=== PATIENT | female | born 1990 | race Caucasian/White ===

== ENCOUNTER 2019-09-13 18:07 | Inpatient (IN) ==
[2019-09-13] MEDS ORDERED: OXYTOCIN 30 UNITS/500 ML BAG IV PRN ×2 (18:15→22:09)
[2019-09-13 18:44] LABS: Hemoglobin 12.8 g/dL (12.0-16.0); Mean Corpuscular Hemoglobin 31.2 pg (25-34); Mean Corpuscular Volume 90.2 fL (80-100); Mean Platelet Volume 10.1 fL (7.4-10.4); Platelet Count 156 K/uL (130-400); RDW Coefficient of Variation 13.4 % (11.5-14.5); RDW Standard Deviation 43.7 fL (36.4-46.3); White Blood Count 8.75 K/uL (4.8-10.8)
[2019-09-13 18:46] LABS: Mean Corpuscular Hgb Conc 34.6 g/dL (32-36)
[2019-09-13] MEDS: LACTATED RINGER'S 1,000 ML IV PRN ×2 (18:47→19:41)
[2019-09-13] MEDS ORDERED: fentaNYL citrate 100 MCG/2 ML VIAL ONE (18:58)
[2019-09-13] MEDS ORDERED: BUPIVACAINE 0.25% 30 ML VIAL ONE (18:58)
[2019-09-13] MEDS ORDERED: fentaNYL 2MCG/ML ROPIV 1.25MG/ML 100 ML BAG EPI ONE (18:58)
[2019-09-13] MEDS ORDERED: ePHEDrine sulfate 50 MG/ML AMP ONE (18:58)
[2019-09-13] MEDS ORDERED: DiphenhydrAMINE HCL 50 MG/ML VIAL IV PRN (19:37)
[2019-09-13] MEDS ORDERED: NALOXONE HCL 1 MG in SODIUM CHLORIDE 0.9% 1000ML 1,000 ML IV PRN (19:37)
[2019-09-13] MEDS ORDERED: NALBUPHINE HCL INJ 10 MG/ML AMP IV PRN (19:37)
[2019-09-13] MEDS ORDERED: NALOXONE HCL 0.4 MG/1 ML VIAL/CARP IV PRN (19:37)
[2019-09-13] MEDS ORDERED: ePHEDrine sulfate 50 MG/ML AMP IV PRN (19:37)
[2019-09-13] MEDS ORDERED: fentaNYL 2MCG/ML ROPIV 1.25MG/ML 100 ML BAG EPI PRN (19:37)
[2019-09-13] MEDS ORDERED: ONDANSETRON INJ 2 MG/ML 2 ML VIAL IV PRN (19:37)
--- NOTE | 2019-09-13 19:37 | Anesthesiology Consultation ---
Date of Service September 13, 2019 Assessment & Plan (1) Encounter for pre-operative examination: Chart Review Chart Review: Acceptable Risk for Labor Epidural Consults Requested none ASA ASA2 Proposed Anesthesia Anesthesia Type: Labor Epidural Risk / Benefits Reviewed With: PT / POA / Parent / Guardian, Accepts Plan and Informed Consent Obtained History Height/Weight Height: 5 ft Weight: 61.235 kg Allergies Allergy/AdvReac Type Severity Reaction Status Date / Time No Known Drug Allergies Allergy Verified 09/07/19 16:21 Medications Home Medications Medication Instructions Recorded Confirmed Last Taken PNV cmb#95-ferrous fumarate-FA 1 tab PO DAILY 03/12/19 09/13/19 Unknown [] Active Medications Generic Name Dose Route Start Last Admin Trade Name Freq PRN Reason Stop Dose Admin Lactated Ringer's 1,000 mls @ 125 mls/hr 09/13/19 18:15 09/13/19 18:47 Lr IV 09/15/19 18:14 999 mls/hr .Q8H PRN Administration L&D Protocol Protocol Past Medical History Medical History History of asthma History of breast lump History of dyspareunia History of dysuria History of multiple miscarriages History of varicella vaccination Exercise / Class Metabolic Activity II 4-5 Yardwork/Stairs/Walk up hill Past Family History Family History Grandmother (Maternal) Diabetes Mother Hypertension Father Hypertension Other No significant family history Past Surgical History Surgical History S/P knee surgery S/P wisdom tooth extraction Past Anesthesia History No Hx of Anesthesia Complications and No Family Hx of Anesthesia Complications History of PONV No Hx of PONV and No Hx of Motion Sickness Social History Smoking Status: Never smoker Hx Alcohol Use: No Hx Substance Use: No substance use type: does not use Physical Exam Vital Signs Last Vital Signs Temp 98.4 F 09/13/19 18:22 Pulse 79 09/13/19 19:32 Resp 22 09/13/19 18:59 BP 129/78 09/13/19 18:15 Pulse Ox 100 09/13/19 19:32 ENMT Mouth: no dentition abnormality Thyromental Distance: > or= 3.5 Finger Breadths Mallampati Class: II Neck normal visual inspection Respiratory normal respiratory effort Auscultation: lungs clear to auscultation bilaterally Cardiovascular Rate/Rhythm: regular rate and regular rhythm Testing Laboratory Results 09/13/19 18:37
--- NOTE | 2019-09-13 22:06 | Delivery Summary ---
Vaginal Delivery Summary Date of Service September 13, 2019 Patient arrived in labor and delivery at 4 cm requested epidural at that time t hen she spontaneously ruptured membranes for clear fluid she progressed rapidly to full dilatation and delivered over an intact perineum in occiput anterior position mouth and then nares were suctioned no nuchal cord gentle traction no excessive force for the delivery of the baby live vigorous infant cord clamped and cut cord gases obtained cord blood obtained placenta removed with traction IV Pitocin started no tearing noted estimated blood loss 250 mL sponge and instrument counts correct
[2019-09-13] MEDS ORDERED: BENZOCAINE 20% AER SPR 82.5 GM CAN EXT PRN (22:09)
[2019-09-13] MEDS ORDERED: bisacodyL 10 MG SUPP PR PRN (22:09)
[2019-09-13] MEDS ORDERED: HYDROCORTISONE ACETATE 25 MG SUPP PR PRN (22:09)
[2019-09-13] MEDS ORDERED: OXYCODONE/ACETAMINOPHEN 5mg/325mg TAB PO PRN (22:09)
[2019-09-13] MEDS ORDERED: SUPERCREAM 0.870% 15 GM JAR EXT PRN (22:09)
[2019-09-13] MEDS ORDERED: DIPHTHERIA/TETANUS/PERTUSSIS 0.5 ML SYR/VIAL IM ONE (22:09)
[2019-09-13 22:34] LABS: Base Excess Cord Venous Blood -0.1 mEq/L (-7.7-1.9); Cord Venous Blood HCO3 26 mmol/L (18.4-26.8); Cord Venous Blood PCO2 45 mmHg (30.4-57.2); Cord Venous Blood PO2 30 mmHg (14.1-43.3); Cord Venous Blood pH 7.37 (7.20-7.44)
[2019-09-13 22:38] LABS: Base Excess Cord Arterial Bld -0.5 mEq/L (-9-1.8); CO2 Cord Arterial Blood 60 mmHg (39.1-73.5); HCO3 Cord Arterial Blood 28 mmol/L (19.7-28.5); pH Cord Arterial Blood 7.29 (7.1-7.38)
[2019-09-13 22:42] LABS: Oxygen Sat Cord Arterial Blood < 60.0 % (<60)
[2019-09-14] MEDS: IBUPROFEN 600 MG TAB PO PRN ×4 (04:27→15:41)
--- NOTE | 2019-09-14 06:05 | Anesthesia Procedure Note ---
Date of Service September 14, 2019 Anesthesia Post Epidural Note Vital Signs Vital Signs: Temp Pulse Resp BP Pulse Ox 98.6 F 69 18 102/65 98 09/14/19 04:40 09/14/19 04:40 09/14/19 04:40 09/14/19 04:40 09/14/19 04:40 Notes Mental Status: alert / awake / arousable and participated in evaluation Nausea / Vomiting: adequately controlled Pain: adequately controlled Airway Patency, RR, SpO2: stable & adequate BP & HR: stable & adequate Hydration State: stable & adequate Neuraxial Anesthesia: was administered and sensory block is resolving Anesthetic Complications: no major complications apparent and Pt Satisfied with anesthetic care Epidural: Removed without complications and With tip intact
[2019-09-14 06:41] LABS: Hematocrit (blood only) 33.7 % (37-47); Hemoglobin 11.6 g/dL (12.0-16.0); Mean Corpuscular Hemoglobin 31.3 pg (25-34); Mean Corpuscular Hgb Conc 34.4 g/dL (32-36); Mean Corpuscular Volume 90.8 fL (80-100); Platelet Count 140 K/uL (130-400); RDW Coefficient of Variation 13.5 % (11.5-14.5); RDW Standard Deviation 44.9 fL (36.4-46.3); Red Blood Count 3.71 M/uL (4.2-5.4); White Blood Count 10.31 K/uL (4.8-10.8)
--- NOTE | 2019-09-14 07:21 | Obstetrical Progress Note ---
Date of Service September 14, 2019 delivered 12 hours ago. Well min bleeding, no ext pain Assessment & Plan (1) Normal delivery: Cont current care Physical Exam Uterus firm non tender. Ext neg Constitutional WD/WN, vitals as above Results & Data Vital Signs (Past 12 Hours) Vital Signs Temp Pulse Pulse Resp BP BP Pulse Ox 09/14/19 04:40 98.6 F 69 18 102/65 98 09/14/19 00:03 83 101/56 L 09/13/19 23:48 80 16 100/59 L 09/13/19 23:33 82 102/61 09/13/19 23:20 98.2 F 76 20 106/69 97 09/13/19 23:18 85 18 111/67 09/13/19 23:03 90 112/65 09/13/19 22:50 98.6 F 16 09/13/19 22:48 81 111/65 09/13/19 22:35 20 09/13/19 22:33 78 121/74 09/13/19 22:20 99.0 F 20 09/13/19 22:18 80 115/72 09/13/19 22:05 89 20 120/78 09/13/19 22:02 92 H 100 09/13/19 21:57 89 138/61 99 09/13/19 21:54 96 H 92 09/13/19 21:52 104 H 100 09/13/19 21:47 112 H 99 09/13/19 21:42 93 H 173/71 H 100 09/13/19 21:37 92 H 100 09/13/19 21:32 83 100 09/13/19 21:30 18 09/13/19 21:28 75 96/53 L 09/13/19 21:27 77 100 09/13/19 21:22 72 100 09/13/19 21:17 62 100 09/13/19 21:12 87 100/65 99 09/13/19 21:07 86 98 09/13/19 21:02 80 99 09/13/19 21:00 98.8 F 18 09/13/19 20:58 81 109/73 09/13/19 20:57 75 99 09/13/19 20:52 80 100 09/13/19 20:47 73 99 09/13/19 20:43 72 124/76 09/13/19 20:42 75 100 09/13/19 20:37 82 100 09/13/19 20:32 89 100 09/13/19 20:30 20 09/13/19 20:28 72 115/69 09/13/19 20:27 72 100 09/13/19 20:22 93 H 100 09/13/19 20:17 93 H 99 09/13/19 20:15 16 09/13/19 20:12 87 99 09/13/19 20:11 74 119/69 09/13/19 20:07 92 H 99 09/13/19 20:06 90 102/70 09/13/19 20:04 99 H 101/73 09/13/19 20:02 89 108/66 99 09/13/19 20:00 90 105/70 09/13/19 19:58 92 H 100/64 09/13/19 19:57 92 H 99 09/13/19 19:56 96 H 98/72 L 09/13/19 19:53 90 116/76 09/13/19 19:52 92 H 99 09/13/19 19:51 99 H 111/73 09/13/19 19:50 83 127/74 09/13/19 19:47 99 H 99 09/13/19 19:42 95 H 100 09/13/19 19:40 89 130/68 09/13/19 19:37 79 100 09/13/19 19:32 79 100 09/13/19 19:30 22 09/13/19 19:27 79 100 09/13/19 19:22 77 100
[2019-09-14] MEDS: DOCUSATE SODIUM 100 MG CAP PO SCH ×2 (08:15→20:48)
[2019-09-14] MEDS: PRENATAL VITAMIN 1 TAB PO SCH (08:15)
[2019-09-14] MEDS ORDERED: NON-FORMULARY MEDICATION (Pnv Cmb#95-Ferrous Fumarate-Fa [Prenatal] 1 TAB) PO SCH (09:00)
[2019-09-14] MEDS: ACETAMINOPHEN 325 MG TAB PO PRN ×2 (14:25→23:24)
[2019-09-14] MEDS ORDERED: bisacodyL 5 MG TABEC PO SCH (20:00)
[2019-09-15] MEDS: IBUPROFEN 600 MG TAB PO PRN ×3 (02:13→12:20)
[2019-09-15] MEDS: ACETAMINOPHEN 325 MG TAB PO PRN ×2 (06:01→12:21)
[2019-09-15 06:18] LABS: Hematocrit (blood only) 34.7 % (37-47); Hemoglobin 11.6 g/dL (12.0-16.0)
--- NOTE | 2019-09-15 06:55 | Obstetrical Progress Note ---
Date of Service September 15, 2019 Assessment & Plan (1) Encounter for care and examination after delivery: with Hx PCOS. Uncomplicated , PPD after on 09/13. - ambulating within room, encouraged ambulation through the halls - tolerating regular diet - lochia slowing - okay for discharge home today - continue supportive care as needed (2) Normal delivery: (3) Polycystic ovarian syndrome: Supervising Physician Co-Signing Physician Notes Resident Physician Supervision Note: I was present with Dr. Tejeda during the history and exam. I discussed the case with the resident and agree with the findings and plan as documented in the note. Any exceptions or clarifications are listed here: PPD#2 doing well. DC home today. Discussed discharge instructions. Documented By: Migdalia Blandon, DO Subjective Doing well this morning. No complaints. Review of Systems Constitutional: + fatigue; no fever and no chills Respiratory: no cough and no dyspnea Cardiovascular: no chest pain, no syncope, no edema and no calf pain Gastrointestinal: + cramping; no abdominal pain, no nausea, no vomiting, no constipation and no diarrhea/loose stools Genitourinary: no dysuria and no difficulty urinating Neurologic: no headache(s) Physical Exam Constitutional: well developed and well nourished Respiratory: normal respiratory effort; no respiratory distress, no labored breathing and no cough Auscultation: no crackles, no rales, no rhonchi and no wheezes Cardiovascular: Rate/Rhythm: regular rate and regular rhythm Heart Sounds: no gallop, no murmur and no cardiac rub Extremities: no pedal edema Gastrointestinal (Abdomen): Inspection/Auscultation: + abdomen distended and normal bowel sounds Percussion/Palpation: abdomen soft; no guarding Musculoskeletal: no tenderness to palpation of calves bilaterally Genitourinary: Uterus small and firm, palpable in midline at level of um bilicus, no tenderness to palpation. Results & Data Vital Signs (Past 12 Hours) Vital Signs Temp Pulse Resp BP Pulse Ox 09/14/19 23:50 36.6 C 57 L 18 137/83 98 09/14/19 19:45 37.0 C 62 18 109/70 09/15/19 Range/Units 05:54 Hgb 11.6 L (12.0-16.0) g/dL Hct 34.7 L (37-47) % Resident Activity Tracking Resident Involvement: Resident Care Provided Care Provided: Adult Hospital Medicine and OB Delivery
[2019-09-15] MEDS: PRENATAL VITAMIN 1 TAB PO SCH (07:57)
[2019-09-15] MEDS: DOCUSATE SODIUM 100 MG CAP PO SCH (07:57)
== END 2019-09-15 13:20 | disposition home or self-care (01) | DRG 807 ==
LOC: OPB 18:07 → 4S1 18:08 → 4S2 09-14 00:15

== ENCOUNTER 2022-12-17 05:31 | Inpatient (IN) ==
[2022-12-17] MEDS ORDERED: LIDOCAINE 1% LOCAL 20 ML VIAL INFIL PRN (06:16)
--- NOTE | 2022-12-17 06:22 | History & Physical Report ---
Date of Service December 17, 2022 Assessment & Plan (1) Supervision of normal intrauterine in multigravida: Plan: IUP in multiparous female at term in labor withSPROM epidural when requested anticipate vaginal History of Present Illness Primary Care Provider: Gene Galicia DO Patient is a 32 yo female EDC 12/18/22 who presents with SPROM clear fluid at 0500 and spontaneous onset of regular contractions. has been uncomplicated. GBS - negative Allergies Allergy/AdvReac Type Severity Reaction Status Date / Time No Known Drug Allergies Allergy Verified 12/15/22 10:23 Home Medications Medication Instructions Recorded Confirmed Type albuterol sulfate 90 mcg/actuation 2 puff inhalation Q8H PRN 02/12/21 12/17/22 Rx aerosol inhaler (Ventolin HFA) shortness of breath or wheezing #8.5 grams prenat.vits,shanda,[id number] 1 tab PO DAILY 05/07/22 12/17/22 History Patient History Medical History (Updated 12/14/22 @ 08:58 by Traci Chun MD) Encounter for care and examination after delivery Encounter for pre-operative examination History of asthma History of breast lump History of dyspareunia History of dysuria History of multiple miscarriages History of varicella vaccination Normal delivery PCB (post coital bleeding) Supervision of normal intrauterine in multigravida Vaginal delivery (09/13/19) Surgical History History of breast biopsy 2011 neg S/P knee surgery S/P wisdom tooth extraction Family History Grandmother (Maternal) Diabetes Mother Hypertension Father Hypertension Tonsil cancer Grandfather (Maternal) Myocardial infarction Denies family history of Ovarian cancer Prostate cancer Breast cancer Lung cancer Colorectal cancer Social History (Updated 05/07/22 @ 14:27 by Mary Grace Grimaldo) Smoking Status: Never smoker Second Hand Exposure: No; Hx Alcohol Use: No Hx Substance Use: No Preferred Language: German Communication Ability: Effective Visual Impairment: Limited Hearing Ability: Normal Public Welfare Worker Required: No Beliefs That Will Affect Care: None marital status: marital status details: Angelita (32) [phone] Current Living Situation: Spouse and Family Current Living Situation Comment: lives with spouse and children. no pets current occupational status: employed current occupation: senior accountant analyst How many Children do You have: 2 Other Information That Helps Us Care for You: No Feels Safe at Home: Yes Safety Concerns: Feels Safe At This Time Childhood Exposure to Second-Hand Smoke: No caffeine: Yes (drinks coffee daily ) Dental Care, Regularly: Yes Physical Activity Frequency: 5-6 Times per Week Seatbelt Use: always Sunscreen Use: Yes Assistive Devices: None Review of Systems All systems reviewed & are unremarkable except as noted in HPI & below Physical Exam Constitutional: WD/WN, vitals as above Psychiatric: A+Ox3, euthymic affect Genitourinary: OB Exam Abdomen: + vertex, + estimated weight (7-8 pounds) and + regular contractions (Q 2-3 minutes) Manual OB Exam: + cervical dilation 4 cm, + cervical effacement 90% and + station -1 OB Exam Monitor Tracing: + external FHT monitor used, + external uterine monitor used, + category I and + normal FHT variability Results & Data Vital Signs (Past 12 Hours) Vital Signs Temp Pulse Resp BP 12/17/22 05:58 97.9 F 77 18 110/76 12/17/22 05:56 77 110/76 Code Status & VTE Plan VTE Prophylaxis Plan VTE Prophylaxis will be ordered: No Coding Level of Care Code None Diagnoses Supervision of normal intrauterine in multigravida Z34.80
[2022-12-17] MEDS: LACTATED RINGER'S 1,000 ML IV PRN ×2 (06:27→07:29)
[2022-12-17] MEDS ORDERED: ePHEDrine sulfate 50 MG/ML AMP ONE (06:39)
[2022-12-17] MEDS ORDERED: LIDOCAINE 2%/EPINEPHRINE 1:200,000 20 ML PF ONE (06:40)
[2022-12-17] MEDS ORDERED: fentaNYL 2MCG/ML ROPIVACAINE 1.25MG/ML 100 ML BAG EPI ONE (06:40)
[2022-12-17] MEDS ORDERED: fentaNYL citrate PF 100 MCG/2 ML VIAL ONE (06:40)
[2022-12-17] MEDS ORDERED: SODIUM CHLORIDE 0.9% PF INJ 10 ML VIAL ONE (06:40)
[2022-12-17] MEDS ORDERED: BUPIVACAINE 0.25% PF 30 ML VIAL ONE (06:40)
[2022-12-17 06:57] LABS: Hematocrit (blood only) 32.8 % (37.0-47.0); Hemoglobin 11.3 g/dl (12.0-16.0); Mean Corpuscular Hemoglobin 30.8 pg (25.0-34.0); Mean Corpuscular Hgb Conc 34.5 g/dL (32.0-36.0); Mean Corpuscular Volume 89.4 fL (80.0-100.0); Mean Platelet Volume 10.3 fL (9.4-12.4); Platelet Count 158 K/uL (130-400); RDW Coefficient of Variation 13.2 % (11.5-14.5); RDW Standard Deviation 42.7 fL (36.4-46.3); Red Blood Count 3.67 M/uL (4.20-5.40)
[2022-12-17] MEDS ORDERED: ONDANSETRON INJ 2 MG/ML 2 ML VIAL IV PRN (07:08)
[2022-12-17] MEDS ORDERED: NALOXONE HCL 0.4 MG/1 ML VIAL/CARP IV PRN (07:08)
[2022-12-17] MEDS ORDERED: NALBUPHINE HCL INJ 10 MG/ML AMP IV PRN (07:08)
[2022-12-17] MEDS ORDERED: ePHEDrine sulfate 50 MG/ML AMP IV PRN (07:08)
[2022-12-17] MEDS ORDERED: diphenhydrAMINE 50 MG/ML VIAL IV PRN (07:08)
[2022-12-17] MEDS ORDERED: NALOXONE HCL 1 MG in SODIUM CHLORIDE 0.9% 1000ML 1,000 ML IV PRN (07:08)
[2022-12-17] MEDS ORDERED: fentaNYL 2MCG/ML ROPIVACAINE 1.25MG/ML 100 ML BAG EPI PRN (07:08)
--- NOTE | 2022-12-17 07:08 | Anesthesiology Consultation ---
Date of Service December 17, 2022 Assessment & Plan ASA ASA2 Proposed Anesthesia Anesthesia Type: Labor Epidural Risk / Benefits Reviewed With: PT / POA / Parent / Guardian, Accepts Plan and Informed Consent Obtained History Height/Weight Height: 5 ft Weight: 64.41 kg Allergies Allergy/AdvReac Type Severity Reaction Status Date / Time No Known Drug Allergies Allergy Verified 12/15/22 10:23 Medications Home Medications Medication Instructions Recorded Confirmed Last Taken albuterol sulfate 90 mcg/actuation 2 puff inhalation Q8H PRN 02/12/21 12/17/22 Unknown aerosol inhaler (Ventolin HFA) shortness of breath or wheezing #8.5 grams prenat.vits,shanda,[id number] 1 tab PO DAILY 05/07/22 12/17/22 12/16/22 Active Medications Generic Name Dose Route Start Last Admin Trade Name Freq PRN Reason Stop Dose Admin Lactated Ringer's 1,000 mls @ 125 mls/hr 12/17/22 06:16 12/17/22 07:29 Lr IV 12/19/22 06:15 999 mls/hr .Q8H PRN Administration L&D Protocol Protocol Past Medical History Medical History Encounter for care and examination after delivery Encounter for pre-operative examination History of asthma History of breast lump History of dyspareunia History of dysuria History of multiple miscarriages History of varicella vaccination Normal delivery PCB (post coital bleeding) Supervision of normal intrauterine in multigravida Vaginal delivery (09/13/19) Exercise / Class Metabolic Activity II 4-5 Yardwork/Stairs/Walk up hill Past Family History Family History Grandmother (Maternal) Diabetes Mother Hypertension Father Hypertension Tonsil cancer Grandfather (Maternal) Myocardial infarction Denies family history of Ovarian cancer Prostate cancer Breast cancer Lung cancer Colorectal cancer Past Surgical History Surgical History History of breast biopsy 2011 neg S/P knee surgery S/P wisdom tooth extraction Past Anesthesia History No Hx of Anesthesia Complications and No Family Hx of Anesthesia Complications History of PONV No Hx of PONV and No Hx of Motion Sickness Social History Smoking Status: Never smoker Hx Alcohol Use: No Hx Substance Use: No substance use type: does not use Review of Systems denies fever/cough/ colds/ chest pain/ SOB/ OLY denies OLY Physical Exam Vital Signs Last Vital Signs Temp 36.8 C 12/17/22 07:05 Pulse 70 12/17/22 07:46 Resp 16 12/17/22 07:39 BP 114/72 12/17/22 07:46 Pulse Ox 100 12/17/22 07:43 ENMT Mouth: no TMJ abnormality and no dentition abnormality Thyromental Distance: > or= 3.5 Finger Breadths Mallampati Class: II Neck neck extension not limited Respiratory normal respiratory effort; no respiratory distress Auscultation: lungs clear to auscultation bilaterally Cardiovascular Rate/Rhythm: regular rate and regular rhythm Neurologic moves all extremities Psychiatric Orientation: alert and oriented x 3 Testing Laboratory Results 12/17/22 06:28
[2022-12-17] MEDS: OXYTOCIN 30 UNITS/500 ML BAG IV PRN ×2 (09:22→10:06)
[2022-12-17] MEDS ORDERED: METHYLERGONOVINE MALEATE 0.2 MG/ML AMP ONE (09:25)
--- NOTE | 2022-12-17 09:29 | Delivery Summary ---
Vaginal Delivery Summary Date of Service December 17, 2022 Vaginal Delivery Summary [facility] Pre-operative Diagnosis: at 39 6/7 srom and labor Post-operative Diagnosis: same Procedure: epidural EBL: 400cc Anesthesia: epidural Procedure: Patient presented to labor and delivery with srom and early labor. Underwent epidural. Progressed to c/c/+2. The patient pushed for 4 contractions to deliver a viable male infant in kell position. The anterior shoulder and body were then delivered. The nose and mouth were bulb suctioned and the infant was placed in the maternal abdomen for drying and attention. Cord was clamped and cut at 30 seconds of life. Cord blood and segment obtained. Placenta delivered spontaneous, intact with a three vessel cord. Cervix/sulci/rectum/perineum were intact. Hemostasis obtained with dilute pitocin, IM methergine and fundal massage. Apgars were pending. Mother and baby doing well at the end of the delivery. [facility] Vaginal Delivery Charge Delivery Type Details: [facility]
[2022-12-17] MEDS ORDERED: ACETAMINOPHEN 325 MG TAB PO PRN (09:38)
[2022-12-17] MEDS ORDERED: METHYLERGONOVINE MALEATE 0.2 MG/ML AMP IM ONE (09:38)
[2022-12-17] MEDS ORDERED: BENZOCAINE 20% AER SPR 82.5 GM CAN EXT PRN (09:38)
[2022-12-17] MEDS ORDERED: HYDROCORTISONE ACETATE 25 MG SUPP PR PRN (09:38)
[2022-12-17] MEDS ORDERED: OXYTOCIN 30 UNITS/500 ML BAG IV PRN (09:38)
[2022-12-17] MEDS ORDERED: DIPHTHERIA/TETANUS/PERTUSSIS 0.5mL SYR/VIAL (Age 7+yrs) IM ONE (09:38)
[2022-12-17] MEDS ORDERED: bisacodyL 10 MG SUPP PR PRN (09:38)
--- NOTE | 2022-12-17 10:08 | Anesthesia Procedure Note ---
Date of Service December 17, 2022 Anesthesia Post Epidural Note Vital Signs Vital Signs: Temp Pulse Resp BP Pulse Ox 36.6 C 71 18 128/57 L 89 L 12/17/22 09:30 12/17/22 10:05 12/17/22 09:45 12/17/22 10:05 12/17/22 09:12 Pain Intensity Abdomen: Pain Intensity: 8 Notes Mental Status: alert / awake / arousable and participated in evaluation Nausea / Vomiting: adequately controlled Pain: adequately controlled Airway Patency, RR, SpO2: stable & adequate BP & HR: stable & adequate Hydration State: stable & adequate Neuraxial Anesthesia: was administered and sensory block is resolving Anesthetic Complications: no major complications apparent and Pt Satisfied with anesthetic care Epidural: Removed without complications and With tip intact
[2022-12-17] MEDS: IBUPROFEN 600 MG TAB PO PRN ×4 (11:06→23:55)
[2022-12-17] MEDS: DOCUSATE SODIUM 100 MG CAP PO SCH (21:03)
[2022-12-18] MEDS: IBUPROFEN 600 MG TAB PO PRN ×2 (04:00→08:47)
--- NOTE | 2022-12-18 05:37 | Obstetrical Progress Note ---
Date of Service <Cristina WinklerDO - Last Filed: 12/18/22 06:26> December 18, 2022 Assessment & Plan <Cristina WinklerDO - Last Filed: 12/18/22 06:26> (1) Status post vaginal delivery: Feels well today. Eating well, voiding well, ambulating well. - Routine care -- OOB, ambulation, diet progression as tolerated - After discharge will have 6 week follow-up - D/c instructions reviewed <Rosa Wells MD, FACOG - Last Filed: 12/18/22 07:19> (1) Status post vaginal delivery: Subjective <Cristina WinklerDO - Last Filed: 12/18/22 06:26> Yolanda is a 32 y/o female who is now PPD # 1 following vaginal delivery at 39 6/7 weeks. Reports feeling well overall this morning. Mild abdominal cramping, pain well managed on analgesics. Voiding. Tolerating meals overnight and able to ambulate some. Some persistent lochia with some improvement this morning. Breast feeding. Review of Systems Denies fever, chills, sweats Denies shortness of breath, difficulty breathing, chest pain, palpitations, chest pressure. Denies breast pain. Denies dysuria. Denies headache or changes in vision. Physical Exam <Cristina WinklerDO - Last Filed: 12/18/22 06:26> General: Alert, oriented. No acute distress. Cardiac: Regular rate and rhythm, no murmurs/rubs/gallops. Respiratory: Clear to auscultation bilaterally a/p, no wheezes/rales/rhonchi. No increased work of breathing. Symmetrical chest rise. No respiratory distress. Abdomen: Soft, nontender, nondistended. Uterus: Uterine fundus firm, palpable 2 cm below umbilicus. Lower Extremities: No lower extremity edema or swelling. No deep calf pain. Results & Data <Cristinarosalba WinklerDO - Last Filed: 12/18/22 06:26> Vital Signs (Past 12 Hours) Vital Signs Temp Pulse Resp BP Pulse Ox O2 Del Method 12/18/22 02:59 36.9 C 54 L 18 104/63 98 Room Air 12/18/22 00:00 36.5 C 56 L 18 108/67 97 Room Air 12/17/22 19:20 36.7 C 65 20 104/62 97 Room Air <Rosa Wells MD, FACOG - Last Filed: 12/18/22 07:19> Co-Signing Physician Notes Resident Physician Supervision Note: I interviewed and examined the patient. Discussed with Dr. Winkler and agree with findings and plan as documented in the note. Any exceptions or clarifications are listed here: Doing well. Routine care. Desires d/c. Instructions reviewed. Documented By: Rosa Wells MD, FACOG Resident Activity Tracking <Cristina Winkler, DO - Last Filed: 12/18/22 06:26> Resident Involvement: Resident Care Provided Care Provided: OB Delivery (post )
[2022-12-18] MEDS ORDERED: PRENATAL VITAMIN 1 TAB PO SCH (08:00)
[2022-12-18] MEDS: DOCUSATE SODIUM 100 MG CAP PO SCH (08:47)
[2022-12-18] MEDS ORDERED: bisacodyL 5 MG TABEC PO SCH (20:00)
== END 2022-12-18 13:13 | disposition home or self-care (01) | DRG 807 ==
LOC: OPB 05:31 → 4S1 05:44 → 4E2 12:40